=== PATIENT | male | born 1960 | race Caucasian/White ===

== ENCOUNTER 2016-11-05 07:30 | Inpatient (IN) ==
[~2016-11-05 07:30] MED LIST: ACETAMINOPHEN 500 MG TABLET PO ONE; CEFAZOLIN 1 G INJECTION IVP ONE; FAMOTIDINE PB 20 MG/50 ML BAG IV ONE; LIDOCAINE 1% (10mg/ml) 10mL MDV SQ ONE; MELOXICAM 15 MG TABLET PO ONE; METOCLOPRAMIDE 10mg/2ml INJECTION IVP ONE; NOZIN NASAL SWAB NAS ONE; ONDANSETRON 4 MG/2 ML INJECTION IVP ONE; TRANEXAMIC ACID 1,000 MG in NS 100 ML IV ONE
[2016-11-05] MEDS ORDERED: EPINEPHrine 0.25 MG, BUPIVACAINE 0.25% PF 30 ML, MORPHINE SULFATE 15 MG, KETOROLAC INJ ... OPSITE ONE (08:00)
[2016-11-05] MEDS ORDERED: LIDOCAINE 1% (10mg/ml) 2mL INJ PF SDV ID ONE (08:28)
[2016-11-05] MEDS: LR 1,000 ML IV SCH ×3 (09:09→12:03)
[2016-11-05] MEDS ORDERED: VANCOMYCIN 1,000 MG INJECTION ONE (10:19)
[2016-11-05] MEDS ORDERED: MIDAZOLAM 2mg/2ml INJECTION ONE (10:24)
[2016-11-05] MEDS ORDERED: PROPOFOL 500 MG/50 ML VIAL IV ONE ×3 (10:25→11:59)
[2016-11-05] MEDS ORDERED: SALINE FLUSH 10ml SYRINGE ONE (11:20)
[2016-11-05] MEDS ORDERED: EPHEDRINE 50mg/ml INJECTION ONE (11:51)
[2016-11-05] MEDS ORDERED: PHENYLEPHRINE INJ 10 MG/ML VIAL IV ONE (11:52)
--- NOTE | 2016-11-05 11:54 | Anesthesia Preoperative Report ---
Anesthesia Preoperative Record - Date and Time Date: 11/05/16 Preoperative Diagnosis: Rt TKA M17.11 Proposed Procedure: Right total knee NPO Since Date: 11/04/16 NPO Since Time: 23:00 Allergies/Adverse Reactions: Allergies Allergy/AdvReac Type Severity Reaction Status Date / Time peanut Allergy Unknown breathing Verified 10/07/16 16:41 difficulty phentermine Allergy Unknown Rash Verified 10/26/16 16:29 - Vital Signs Vital Signs: Temperature 98.1 F 11/05/16 08:27 Pulse Rate 90 11/05/16 09:25 Respiratory Rate 20 11/05/16 09:25 Blood Pressure 143/81 H 11/05/16 09:25 Pulse Oximetry 96 11/05/16 08:27 Oxygen Delivery Method Room Air Height and Weight: Height 6 ft 6 in Weight 161.8 kg Body Mass Index 41.2 - Medications Inpatient Medications: Current Medications Epinephrine HCl 0.25 mg/Bupivacaine HCl 30 ml/Morphine Sulfate 15 mg/Ketorolac Tromethamine 60 mg/Sodium Chloride 65.25 mls @ 1 mls/hr OPSITE INTRAOP ONE PRN Reason: Protocol Stop: 11/08/16 01:14 Lactated Ringer's (Lactated Ringers) 1,000 mls @ 50 mls/hr IV .Q20H [place] Last Admin: 11/05/16 10:38 Dose: 50 mls/hr Sodium Chloride (Iv Flush) 10 - 80 ml IVF PRN PRN PRN Reason: [place] Home Medications: Home Medications Medication Instructions Recorded Confirmed Type Meloxicam [Meloxicam] 15 mg PO DAILY 10/07/16 11/05/16 History Multi-Vitamin Plain [Theragran] 1 tab PO DAILY 10/07/16 11/05/16 History Tamsulosin [Flomax] 0.4 mg PO HS 10/07/16 11/05/16 History Zolpidem Tartrate [Ambien] 10 mg PO HS 10/07/16 10/07/16 History Naltrexone HCl/Bupropion HCl 1 each PO DAILY 10/26/16 11/05/16 History [Contrave ER 8-90 mg Tablet] Sildenafil Citrate [Viagra] 100 mg PO DAILY PRN 10/26/16 11/05/16 History Testosterone Cypionate 400 mg IM Q2WKS 10/26/16 11/05/16 History Zolpidem Tartrate [Ambien] 10 mg PO HS 11/04/16 11/05/16 History Amlodipine Besylate/Benazepril 10 - 20 mg PO DAILY 11/05/16 11/05/16 History Is Patient on Beta Goldy?: No - Medical History Respiratory: Reports: Sleep Apnea (does not wear CPAP) Cardiovascular: Reports: Hypertension Gastrointestional: Reports: Gastroesophageal Reflux Disease (occassionally- well controlled), Morbid Obesity Renal/Endocrine: Reports: Thyroid Disease - Surgical History HEENT Surgeries: Reports: Nose Surgery (Sinus surgery) Surgery/Treatment: REPORT: Other (hydrocelectomy) Anesthesia Reactions: None Hx Family Anesthesia Reaction: No History of Motion Sickness: No - Social History Smoking Status: Former smoker Hx Chewing Tobacco Use: No Second Hand Exposure: No Substance Use Type: does not use - Pertinent Findings Laboratory: CBC and BMP 11/05/16 08:43 BMP 11/05/16 08:43 Sodium 141 Potassium 4.1 Chloride 104 Carbon Dioxide 29 BUN 21.0 H Creatinine 1.0 Glucose 101 Calcium 9.2 EKG Rhythm: Normal Sinus Rhythm - Physical Exam Respiratory Exam: Present: lungs clear (slightly diminished) Cardiovascular Exam: Present: regular rate and rhythm - Airway Assessment Mallampati Score: III TMD: 3 Fingerbreadths Overall Assessment: may be difficult mask vent, may be difficult intubation - ASA ASA Score: 3 - Plan Anesthesia: General TIVA Regional/Trunk Block: Spinal - Discussion Discussion: Discussed risks/options/alternatives of anesthesia and questions answered. Patient consents. Nursing pain assessment noted. Present for Discussion: children (daughter) Attestation Statement: Prior to the delivery of any anesthetic medication, I examined the patient, developed the plan, obtained the patient's consent and discussed the risk and benefits of the procedure with the patient/guardian. - Additional Information Seen by Anesthesia: Yes
[2016-11-05] MEDS ORDERED: VANCOMYCIN 1,000 MG INJECTION IAR ONE (12:10)
[2016-11-05] MEDS ORDERED: VASOPRESSIN 20unit/ml INJECTION ONE (12:21)
[2016-11-05] MEDS ORDERED: SALINE FLUSH 10ml SYRINGE IVF PRN (12:24)
[2016-11-05] MEDS ORDERED: PROPOFOL 20 ML ONE (12:34)
--- NOTE | 2016-11-05 12:48 | Operative Note ---
- Procedure Date of Admission: 11/05/16 Side: right Preoperative Diagnosis: knee primary DJD Postoperative Diagnosis: Same as preoperative diagnosis. Operation: total knee arthroplasty Surgeon: Jaime Fisher MD Client Services Specialist: Mathew Turner Complications: None. Regional/Trunk Block: Spinal Peripheral Nerve Block: Saphenous-Right Estimated Blood Loss: See Anesthesia Record. Fluids: Please see Anesthesia Record. Description of Procedure: and the right knee were identified and marked in the preoperative holding area. He was brought back to the operating suite and placed supine on the operating table. Spinal anesthetic was administered. The operative lower extremity was prepped and draped in a sterile fashion. Timeout was performed. Had a correctable varus deformity. An anterior midline incision followed by medial parapatellar arthrotomy was performed. The tourniquet was not used until cementing. Hemostasis was obtained with electrocautery. He had significant wear of the patellar cartilage as well as medial femoral condyle inferiorly. Is a large osteophyte in the notch which appeared to be a loose body. The patella was resurfaced to a size 35. A distal femoral osteotomy was then performed in 5 of valgus using intramedullary guide. The femur was sized at a 5 and rotation set using the epicondylar axis. Distal femoral cuts were performed with a 4-in- 1 cutting block. A proximal tibial cut was then made perpendicular to its long axis using an extramedullary guide. At this point remaining meniscus and osteophytes were removed and joint cocktail was injected throughout soft tissue. Trial components were placed with a 9 mm spacer. Medial release was performed. This allowed for full extension and flexion and the patella tracked well. The leg was then exsanguinated and the tourniquet inflated to 250 mmHg. The tibia was then stamped at a size 6 at the proper rotation. The bone was then prepared for cementing and [place] [employer] components were cemented into place and allowed to cure in extension. The tourniquet was then let down and hemostasis obtained with electrocautery. Betadine solution was used during the curing period for 3 minutes. 1 g of vancomycin powder was placed into the joint before the capsulotomy was repaired with #1 Vicryl. I then left my medical assistant float close the subcutaneous tissue and skin with 2-0 Vicryl and Monocryl. Dermabond was used on the skin. The drapes were then removed and she was taken to recovery room under the care of anesthesia.
--- NOTE | 2016-11-05 12:58 | History & Physical Update ---
- History and Physical Update Date: 11/05/16 Update: I evaluated this patient and found no changes in the history and clinical exam findings. The treatment plan and recommendations are also unchanged from the previous documentation.
--- NOTE | 2016-11-05 13:42 | XRay Report ---
Indication: postoperative image PROCEDURE: XR knee RT 2V: Encounter: Initial Comparison: July 27, 2016 Findings: Postoperative changes of right total knee replacement are seen. There is expected postoperative subcutaneous gas. No evidence of hardware failure or acute fracture. No retained radiopaque surgical instruments or sponges. Overlying material causing artifact. Impression: New right total knee prosthesis without evidence of immediate complication. .
[2016-11-05] MEDS ORDERED: LORazepam 1 MG TABLET PO PRN (13:56)
[2016-11-05] MEDS ORDERED: KETOROLAC 30 MG/ML INJECTION IVP PRN (13:56)
[2016-11-05] MEDS ORDERED: DiphenhydrAMINE 50 MG/ML INJECTION IVP PRN (13:56)
[2016-11-05] MEDS ORDERED: Oxycodone *IR* 5 MG TABLET PO PRN (13:56)
[2016-11-05] MEDS ORDERED: DiphenhydrAMINE 25 MG CAPSULE PO PRN (13:56)
[2016-11-05] MEDS ORDERED: NOZIN NASAL SWAB NAS ONE (13:56)
[2016-11-05] MEDS ORDERED: INSULIN ASPART 100unit/ml INJECTION SQ PRN (13:56)
[2016-11-05] MEDS ORDERED: ONDANSETRON 4 MG/2 ML INJECTION IVP PRN (13:56)
[2016-11-05 14:04] VITALS: BMI 42.0
[2016-11-05] MEDS: NS 1,000 ML IV SCH (14:04)
[2016-11-05] MEDS ORDERED: FALL RISK - PHARMACY CONSULT XX ONE (14:11)
--- NOTE | 2016-11-05 14:49 | Anesthesia Postoperative Note ---
- Date and Time Date: 11/05/16 Time: 14:49 - Status Patient Participated in Evaluation: Patient Participated in Person Vital Signs: Temperature 97.8 F 11/05/16 13:58 Pulse Rate 75 11/05/16 14:40 Respiratory Rate 18 11/05/16 14:40 Blood Pressure 117/64 11/05/16 14:40 Pulse Oximetry 99 11/05/16 14:40 Oxygen Delivery Method Room Air Oxygen Flow Rate 6 Respiratory Function: Airway Patent Cardiovascular Function: Regular Pulse Mental Status: Alert and Oriented Pain Intensity: 2 Hydration: Taking PO Fluids Complications During Recover: None Apparent Post Anesthesia Care Notes: Block working well - Follow-Up Instructions Instructions: Per Surgeon
--- NOTE | 2016-11-05 15:00 | Anesthesia Procedure Note ---
Peripheral Nerve Blockade - Procedure Physician: Abhijit Fisher MD Date: 11/05/16 Surgical Procedure: right total knee Discussion: Discussed risks/options/alternatives of anesthesia and questions answered. Patient consents. Nursing pain assessment noted. Block Start: 13:02 Block Stop: 13:08 Blocked Employed: Adductor Canal Indication: Post-Operative Pain Approach: Right Side Confirmed Position: Supine Patient: Consent, Risks/Benefits Discussed, Informed, Post Block Act. Discussed IV Sedation: No (spinal still active) Initial Vital Signs: Temperature 98.1 F 11/05/16 08:27 Temperature Source Oral 11/05/16 08:27 Pulse Rate 96 11/05/16 08:27 Respiratory Rate 15 11/05/16 08:27 Blood Pressure 169/96 H 11/05/16 08:27 Blood Pressure Mean 120 11/05/16 08:27 Blood Pressure Position Sitting 11/05/16 08:27 Pulse Oximetry 96 11/05/16 08:27 Oxygen Delivery Method 11/05/16 08:27 Post Vital Signs: Temperature 97.8 F 11/05/16 13:58 Pulse Rate 75 11/05/16 14:40 Respiratory Rate 18 11/05/16 14:40 Blood Pressure 117/64 11/05/16 14:40 Pulse Oximetry 99 11/05/16 14:40 Oxygen Delivery Method Room Air Oxygen Flow Rate 6 Initial Pain Pain Score: 0 Post Block Pain Score: 0 Prep: Chlorhexadine/ETOH Ultrasound Used?: Yes - Injectate Ropivacaine (%): 0.5 Ropivacaine (mL): 30 Was Epi 1:200,000 Used?: No Injection: Injection made incrementally with constant monitoring and aspiration every 5 ml negative aspiration
[2016-11-05] MEDS: NOZIN NASAL SWAB NAS SCH ×2 (16:27→22:16)
[2016-11-05] MEDS: ACETAMINOPHEN 325 MG TABLET PO SCH ×2 (17:31→22:17)
[2016-11-05] MEDS: CEFAZOLIN 2 G in NS 100 ML IV SCH (18:14)
[2016-11-05] MEDS: Oxycodone *IR* 5 MG TABLET PO PRN ×2 (19:01→22:17)
[2016-11-05] MEDS ORDERED: ZOLPIDEM 10 MG TABLET PO SCH (22:00)
[2016-11-05] MEDS ORDERED: SENNOSIDES 8.6 MG TABLET PO SCH (22:00)
[2016-11-05] MEDS ORDERED: TAMSULOSIN 0.4 MG CAPSULE PO SCH (22:00)
[2016-11-05] MEDS: DOCUSATE SODIUM 100 MG CAPSULE PO SCH (22:17)
[2016-11-05] MEDS: ASPIRIN *EC* 325 MG TABLET PO SCH (22:18)
[2016-11-06] MEDS: Oxycodone *IR* 5 MG TABLET PO PRN ×6 (02:01→16:58)
[2016-11-06] MEDS: CEFAZOLIN 2 G in NS 100 ML IV SCH (02:02)
[2016-11-06] MEDS: NS 1,000 ML IV SCH ×2 (02:02→15:09)
[2016-11-06] MEDS: NOZIN NASAL SWAB NAS SCH ×2 (05:53→13:33)
[2016-11-06 07:19] VITALS: RESP 18
--- NOTE | 2016-11-06 07:48 | Orthopedic Progress Note ---
Date: Subjective/Severity of Illness: is doing well. Pain is adequately controlled. No CP, cough or SOA. Appetite is good this AM. He was up last evening after 8pm. His block did not wear off early enough for PT to work with him. He is ready to get up and work with therapy. No complaints or concerns. Pt has a script for Contrave at home but reports he only took a single dose over a week ago. He does not plan on taking it and will "throw it away" when he gets home. Pt was educated on the risk of taking it with narcotic pain medication. Orthopedic Objective PO Vital signs: Temperature 97.2 F 11/06/16 07:02 Pulse Rate 86 11/06/16 07:02 Respiratory Rate 18 11/06/16 07:02 Blood Pressure 136/79 11/06/16 07:02 Pulse Oximetry 97 11/06/16 07:02 Oxygen Delivery Method Room Air Oxygen Flow Rate 6 Height and Weight: Height 6 ft 6 in Weight 363 lb 12.203 oz Body Mass Index 42.0 - Constitutional General Appearance: Present: alert, no acute distress, obese - Respiratory Exam Present: non-labored - Cardiovascular Exam Present: pedal pulses intact - Extremities Exam Extremities: Present: pulses intact, normal capillary refill. Absent: calf tenderness - Knee Exam Knee Exam: Present: ROM (Pt is able to SLR and actively flex to 90 degrees.) - Surgical Site Incision: Mepilex dressing intact, no drainage - Neurological Exam Present: no deficits - Psychiatric Exam Present: alert, normal affect - Labs Result Diagrams: 11/06/16 04:07 11/06/16 04:07 Abnormal lab results 11/05/16 11/06/16 11/06/16 Range/Units 08:43 04:07 04:07 RDW Std Deviation 50.5 H (36.9-50.2) FL BUN 21.0 H 23.0 H (9-20) MG/DL Specimen Hemolysis 50 H (0-25) H & H 11/06/16 Range/Units 04:07 Hgb 15.3 (13.5-17.5) GM/DL Hct 47.8 (41-53) % Orthopedic Assessment and Plan (1) Arthritis of knee, right Status: Acute Assessment and Plan: Aspirin protocol for VTE prophylaxis. SCD's. PT/OT services to improve independent function. Discharge Planning per Case Management. Hospital Course Summary Disclaimer: The visit summary below is not to be considered part of the above Progress Note.
[2016-11-06] MEDS ORDERED: AMLODIPINE/BENAZEPRIL 5mg/10mg CAPSULE PO SCH (09:00)
[2016-11-06] MEDS ORDERED: POLYETHYL GLYCOL 3350 17gm PACKET PO SCH (09:00)
[2016-11-06] MEDS: ASPIRIN *EC* 325 MG TABLET PO SCH (09:06)
[2016-11-06] MEDS: ACETAMINOPHEN 325 MG TABLET PO SCH ×2 (09:06→13:33)
[2016-11-06] MEDS: DOCUSATE SODIUM 100 MG CAPSULE PO SCH (09:06)
--- NOTE | 2016-11-06 11:32 | Discharge Summary ---
Orthopedic Discharge Info Date of admission: 11/05/16 08:02 Primary care physician: Remberto Conley MD Attending Physician: Abhijit Fisher MD Consults: 11/05/16 08:19 Consult to Anesthesiology [CONS] Routine Consulting Provider: GREGORIA Steele Reason For Exam: Preoperative Assessment 11/05/16 13:56 Case Management Consult [CONS] Routine Reason For Exam: Discharge Planning DME-Walker [CONS] Routine Height: 6 ft 6 in Weight: 356 lb 11.327 oz Comment: change dressing in 2 weeks Total Joint Outpatient Therapy [CONS] Routine Comment: change dressing in 2 weeks - Discharge Diagnosis (1) Arthritis of knee, right Status: Acute - Procedures Procedures: Right TKA - Laboratory Result Diagrams: 11/06/16 04:07 11/06/16 04:07 Laboratory: Abnormal lab results 11/06/16 11/06/16 Range/Units 04:07 04:07 RDW Std Deviation 50.5 H (36.9-50.2) FL BUN 23.0 H (9-20) MG/DL Specimen Hemolysis 50 H (0-25) H & H 11/06/16 Range/Units 04:07 Hgb 15.3 (13.5-17.5) GM/DL Hct 47.8 (41-53) % Orthopedic Discharge HPI - HPI Comments This patient was admitted for elective surgical tx of end stage degenerative joint disease that failed to respond to conservative treatment. Further details of this is found in the admission H&P. Orthopedic Hospital Course Hospital course: 11/06/16 11:33 After appropriate preoperative clearance and signing of operative consent, the patient was given IV antibiotics, according to orthopedic protocol. The patient was taken to the operating room and underwent elective joint arthroplasty. Following surgery, antibiotics were discontinued less than 24 hours according to joint protocol. Appropriate anticoagulants were initiated and SCDs added for DVT prevention. The dressing was clean, dry, and intact. Pain control was obtained via multimodal approach. Bowel motivation addressed with scheduled and PRN medications. Early mobilization was initiated through PT services. Discharge arrangements made by a collaborative effort between the patient and Case Management. Follow-up is scheduled in 2-3 weeks. Discharge instructions given by orthopedic providers and nursing staff at discharge. Discharge condition was good. Discharge Plan - Med Rec/Dispo Referrals/Follow Up: Abhijit Fisher MD [Physician] - 11/30/16 1:00 pm Additional Instructions: [facility] ON 11/09/2016 AT 1:15PM FOR PHYSICAL THERAPY [facility]. PHONE [phone] Prescriptions: New Aspirin *EC* [Ecotrin] 325 mg PO BID #84 tablet Acetaminophen [Tylenol] 650 mg PO QID #100 tablet Oxycodone *Ir* [Roxicodone *Ir*] 5 - 10 mg PO Q3H PRN #60 tablet PRN Reason: Pain Continue Zolpidem Tartrate [Ambien] 10 mg PO HS Tamsulosin [Flomax] 0.4 mg PO HS Meloxicam 15 mg PO DAILY Sildenafil Citrate [Viagra] 100 mg PO DAILY PRN PRN Reason: Erectile Dysfunction Amlodipine Besylate/Benazepril 10 - 20 mg PO DAILY Multi-Vitamin Plain [Theragran] 1 tab PO DAILY Testosterone Cypionate 400 mg IM Q2WKS Zolpidem Tartrate [Ambien] 10 mg PO HS Discontinued Naltrexone HCl/Bupropion HCl [Contrave ER 8-90 mg Tablet] 1 each PO DAILY - Disposition Discharged Home, Self-Care
[2016-11-06 11:46] VITALS: BP 146/89; PULSE 92; TEMP 95.8; O2SAT 95
[2016-11-06] MEDS ORDERED: SENNOSIDES 8.6 MG TABLET PO PRN (13:08)
[2016-11-07] MEDS ORDERED: BISACODYL 10 MG SUPPOSITORY RECTALLY SCH (20:00)
== END 2016-11-06 17:07 | disposition home or self-care (01) | DRG 470 ==
LOC: SRG 08:02
PROVIDERS: ADMIT Orthopaedic Surgery; ATTEND Orthopaedic Surgery